=== PATIENT | male | born 1955 | race Caucasian/White ===

== ENCOUNTER 2016-06-11 06:34 | Outpatient (CLI) | payer OTHER ==
[2016-06-11 07:03] LABS: #Basophils 0.1 thou/uL (0.0-0.2); #Eosinphils 0.3 thou/uL (0.0-0.7); #Lymphocytes 2.6 thou/uL (1.20-3.40); #Monocytes 0.8 thou/uL (0.11-0.59); %Basophils 1.4 % (0.0-1.0); %Eosinophils 3.5 % (0.0-10.0); %Lymphocytes 29.4 % (21.0-51.0); %Neutrophils 56.7 % (42.0-75.0); Hemoglobin 12.4 g/dL (14.0-18.0); Mean Corpuscular HGB CONC 34.2 g/dL (32.0-36.0); Mean Corpuscular Hemoglobin 33.3 pg (27.0-31.0); Mean Corpuscular Volume 97.3 fl (80.0-94.0); Mean Platelet Volume 8.9 fL (7.4-10.4); Platelet Count 172 thou/uL (130-400); RBC Distribution Width 11.9 % (11.5-14.5); Red Blood Cell (RBC) Count 3.72 mill/uL (4.70-6.10); White Blood Cell (WBC) Count 8.8 thou/uL (4.8-10.8)
[2016-06-11 07:15] LABS: Hemoglobin A1c 6.6 % (4.0-6.0)
[2016-06-11 07:27] LABS: ALT (SGPT) 30 U/L (0-55); AST (SGOT) 22 U/L (5-34); Albumin 4.4 g/dL (3.4-4.8); Alkaline Phosphatase 46 U/L (40-150); Anion Gap 16 mmol/L (10-20); BUN (Urea Nitrogen) 19 mg/dL (8.4-25.7); Bilirubin, Total 0.3 mg/dL (0.2-1.2); Calc. Creatinine Clearance 0 mL/min (70-130); Calcium 9.8 mg/dL (7.8-10.44); Carbon Dioxide 23 mmol/L (23-31); Cardiac Risk 4.7 (Less than 4.5); Chloride 105 mmol/L (98-107); Cholesterol 182 mg/dL (< 200 Desired); Estimated GFR-MDRD 41; Globulin 2.4 g/dL (2.4-3.5); Glucose 220 mg/dL (80-115); HDL Cholesterol 39 mg/dL (>60 Neg Risk); LDL Cholesterol, Calculated 86 mg/dL; Potassium 4.6 mmol/L (3.5-5.1); Protein, Total 6.8 g/dL (5.8-8.1); Sodium 139 mmol/L (136-145); Triglycerides 285 mg/dL (Less than 150)
[2016-06-11 07:52] LABS: PSA-Asymptomatic (SCREENING) 0.51 ng/mL (0-4.0); Thyroid Stimulating Hormone 1.6033 uIU/mL (0.35-4.94); Vitamin D, 25 Hydroxy 28.5 ng/mL (> 30.0)
[2016-06-11 18:23] LABS: Creatinine, Urine 429.07 mg/dL (63-166); Microalbumin Urine 11.4 mg/dL (0.5-50.0); Microalbumin/Creat Ratio 26.6 mg/g (Less than 30)
== END 2016-06-11 06:35 | disposition home or self-care (01) ==
LOC: NAV LAB 06:34
PROVIDERS: ATTEND Family Medicine
DX: Z12.5 Encounter for screening for malignant neoplasm of prostate (principal); E78.5 Hyperlipidemia, unspecified; E11.65 Type 2 diabetes mellitus with hyperglycemia; E55.9 Vitamin D deficiency, unspecified; R53.83 Other fatigue
CPT/HCPCS: 80053; 80061; 82043; 82306; 82607; 83036; 84439; 84443; 84481; 85025; G0103

== ENCOUNTER 2016-09-11 07:08 | Outpatient (CLI) | payer OTHER ==
[2016-09-11 07:50] LABS: ALT (SGPT) 25 U/L (8-55); AST (SGOT) 20 U/L (5-34); Albumin 4.4 g/dL (3.4-4.8); Alkaline Phosphatase 40 U/L (40-150); Anion Gap 14 mmol/L (10-20); BUN (Urea Nitrogen) 13 mg/dL (8.4-25.7); Bilirubin, Total 0.6 mg/dL (0.2-1.2); Calc. Creatinine Clearance 0 mL/min (70-130); Calcium 10.2 mg/dL (7.8-10.44); Carbon Dioxide 27 mmol/L (23-31); Cardiac Risk 3.4 (Less than 4.5); Chloride 103 mmol/L (98-107); Cholesterol 148 mg/dl (< 200 Desired); Estimated GFR-MDRD 75; Globulin 2.6 g/dL (2.4-3.5); Glucose 150 mg/dL (80-115); HDL Cholesterol 44 mg/dL (>60 Neg Risk); LDL Cholesterol, Calculated 68 mg/dL; Potassium 4.8 mmol/L (3.5-5.1); Sodium 139 mmol/L (136-145); Triglycerides 179 mg/dL (Less than 150)
== END 2016-09-11 07:09 | disposition home or self-care (01) ==
LOC: NAV LAB 07:08
PROVIDERS: ATTEND Family Medicine
DX: E78.5 Hyperlipidemia, unspecified (principal); E55.9 Vitamin D deficiency, unspecified
CPT/HCPCS: 80053; 80061; 82306

== ENCOUNTER 2016-10-05 23:10 | Emergency (ER) | payer OTHER ==
[2016-10-05] MEDS ORDERED: Sodium Chloride 0.9% 1,000 ML ONE (23:54)
[2016-10-06 00:10] LABS: Band 44 % (5-11); Eosinophils 2 % (0-10); Lymphocytes 10 % (21-51); MDiff Complete? YES; Mean Corpuscular HGB CONC 32.9 g/dL (32.0-36.0); Mean Corpuscular Hemoglobin 31.8 pg (27.0-31.0); Mean Corpuscular Volume 96.6 fl (80.0-94.0); Mean Platelet Volume 9.9 fL (7.4-10.4); Metamyelocyte 5 % (0-0); Monocytes 4 % (0-10); Neutrophil 35 % (42-75); PLT Morphology Comment Appears Adequate; Platelet Count 153 thou/uL (130-400); RBC Distribution Width 11.3 % (11.5-14.5); RBC Morphology Normal; Red Blood Cell (RBC) Count 3.47 mill/uL (4.70-6.10); White Blood Cell (WBC) Count 15.4 thou/uL (4.8-10.8)
[2016-10-06 00:11] LABS: ALT (SGPT) 20 U/L (8-55); AST (SGOT) 17 U/L (5-34); Albumin 3.8 g/dL (3.4-4.8); Alkaline Phosphatase 34 U/L (40-150); Anion Gap 14 mmol/L (10-20); BUN (Urea Nitrogen) 33 mg/dL (8.4-25.7); Bilirubin, Total 0.9 mg/dL (0.2-1.2); Calc. Creatinine Clearance 0 mL/min (70-130); Calcium 9.5 mg/dL (7.8-10.44); Carbon Dioxide 25 mmol/L (23-31); Chloride 96 mmol/L (98-107); Estimated GFR-MDRD 34; Glucose 254 mg/dL (80-115); Potassium 4.3 mmol/L (3.5-5.1); Protein, Total 6.8 g/dL (5.8-8.1); Sodium 131 mmol/L (136-145)
[2016-10-06] MEDS ORDERED: Sodium Chloride 0.9% 1,000 ML ONE (00:12)
[2016-10-06] MEDS ORDERED: Piperacillin/Tazobactam 3.375 GM VIAL ONE (00:13)
[2016-10-06] MEDS ORDERED: Sodium Chloride 0.9% 100 ML ONE ×3 (00:14→01:04)
[2016-10-06] MEDS ORDERED: Sodium Chloride 0.9% 250 ML 250 ML ONE (00:14)
[2016-10-06] MEDS ORDERED: Clindamycin 300 MG/2 ML VIAL ONE (01:01)
== END 2016-10-06 01:45 | disposition short-term general hospital (02) ==
LOC: NAV ERS 23:10
DX: A41.9 Sepsis, unspecified organism (principal); L03.316 Cellulitis of umbilicus; E78.5 Hyperlipidemia, unspecified; I10 Essential (primary) hypertension; J44.9 Chronic obstructive pulmonary disease, unspecified; F17.220 Nicotine dependence, chewing tobacco, uncomplicated
CPT/HCPCS: 80053; 83605; 85025; 87040; 96365; 96367; J2543; J3370; J3490; J7050

== ENCOUNTER 2018-06-08 07:23 | Outpatient (CLI) | payer OTHER ==
--- NOTE | 2018-06-08 08:01 | ULT ---
GALLBLADDER ULTRASOUND: HISTORY: Elevated liver function tests. TECHNIQUE: Real-time imaging of the right upper quadrant was performed. The exam is technically limited due to gas and body habitus. FINDINGS: The gallbladder appears normal is size. No stones are identified. There is suggestion of some sludg e within the gallbladder. No gallbladder wall thickening. The common duct is in the 6 to 7 mm range . The liver is of increased echogenicity and very difficult to penetrate. It is also obscured and d ifficult to measure size. The pancreas is obscured. The right kidney is normal in size and not obstructed. There is an approximately 2 cm mid pole right renal cyst present. IMPRESSION: 1. Limited examination due to body habitus. 2. Heterogeneous liver parenchyma, which is of increased echogenicity and difficult to penetrate. 3. A 2 cm right renal cyst. 4. Suggestion of some minimal gallbladder sludge. No stones identified. POS: [facility]
== END 2018-06-08 07:24 | disposition home or self-care (01) ==
LOC: NAV ULT 07:23
PROVIDERS: ATTEND Family Medicine
DX: R74.0 Nonspecific elevation of levels of transaminase and lactic acid dehydrogenase [LDH] (principal); N28.1 Cyst of kidney, acquired; R93.2 Abnormal findings on diagnostic imaging of liver and biliary tract
CPT/HCPCS: 76705